=== PATIENT | male | born 1930 | race Caucasian/White ===

== ENCOUNTER 2020-03-19 17:33 | Inpatient (IN) | payer OTHER, MEDICARE ==
[~2020-03-19] VITALS: Ht 175.3 cm; Wt 64.4 kg
[2020-03-19 17:47] VITALS: BP_SYST 140
[2020-03-19] MEDS ORDERED: PANT20TA2 PO (18:27)
[2020-03-19] MEDS ORDERED: MOM PO (18:27)
[2020-03-19] MEDS ORDERED: INSU100V42 (18:27)
[2020-03-19] MEDS ORDERED: MULT-1089 PO (18:27)
[2020-03-19] MEDS ORDERED: ACET325T53 PO (18:27)
[2020-03-19] MEDS ORDERED: ACET-73 PO (18:27)
[2020-03-19] MEDS ORDERED: DIVA250T PO (18:27)
[2020-03-19] MEDS ORDERED: ZOLP5TAB2 PO (18:27)
[2020-03-19] MEDS ORDERED: TIMO5DRO16 EACH EYE (18:27)
[2020-03-19] MEDS ORDERED: SITA100T11 PO (18:27)
[2020-03-19] MEDS ORDERED: LOSA50TA3 PO (18:27)
[2020-03-19] MEDS ORDERED: ONDANSETRON HCL 4 MG/2 ML VIAL IVP ONE (19:00)
[2020-03-19] MEDS ORDERED: MORPHINE 2 MG/ML INJ. SYRINGE IVP ONE (19:00)
[2020-03-19 19:34] LABS: BASOPHILS # (AUTO) 0.1 K/uL (0.0-0.2); BASOPHILS % (AUTO) 1.3 % (0.0-2.0); EOSINOPHILS # (AUTO) 0.2 K/uL (0.0-0.4); EOSINOPHILS % (AUTO) 2.1 % (0.0-4.0); HEMATOCRIT 42.2 % (36-54); HEMOGLOBIN 14.3 g/dL (14.0-18.0); LYMPHOCYTES # (AUTO) 1.4 K/uL (1.0-5.5); LYMPHOCYTES % (AUTO) 12.7 % (20.5-51.5); MEAN CORPUSCULAR HEMOGLOBIN 31 pg (27-31); MEAN CORPUSCULAR HGB CONC 34 % (32-36); MEAN CORPUSCULAR VOLUME 90 fL (79.0-98.0); MONOCYTES # (AUTO) 1.5 K/uL (0.0-1.0); MONOCYTES % (AUTO) 13.6 % (1.7-9.3); NEUTROPHILS # (AUTO) 7.8 K/uL (1.8-7.7); NEUTROPHILS % (AUTO) 70.3 % (40.0-70.0); PLATELET COUNT (AUTO) 235 K/uL (130-430); RED BLOOD CELL COUNT(AUTO) 4.67 MIL/uL (4.2-6.2); RED CELL DISTRIBUTION WIDTH 14.4 % (9.0-15.0); WHITE BLOOD COUNT (AUTO) 11.1 K/uL (4.8-10.8)
[2020-03-19] MEDS ORDERED: IOHEXOL 350 mgI/mL, 150 ML INFUS..BTL IV ONE (20:49)
[2020-03-20] MEDS ORDERED: HEPARIN 25,000 UNITS/D5W 250ML 250 ML IV ONE (05:33)
[2020-03-20] MEDS ORDERED: HEPARIN SODIUM,PORCINE 5,000 UNITS/ML VIAL ONE (05:52)
[2020-03-20 08:00] VITALS: BP_SYST 169
[2020-03-20] MEDS ORDERED: *HEPARIN PER PHARMACY XX PRN (08:15)
[2020-03-20] MEDS ORDERED: HEPARIN SODIUM,PORCINE 5,000 UNITS/ML VIAL IV ONE (08:45)
[2020-03-20] MEDS ORDERED: KCL 20 mEq in D5/0.45NS 1000mL 1,000 ML IV SCH (08:45)
[2020-03-20 12:00] VITALS: BP_SYST 139
[2020-03-20 13:43] LABS: POTASSIUM 4.5 mmol/L (3.5-5.1); SODIUM SERUM 136 mmol/L (136-145)
[2020-03-20 13:44] LABS: ALANINE AMINOTRANSFERASE 683 U/L (12-78); ANION GAP 9 (5-15); ASPARTATE AMINOTRANSFERASE 131 U/L (10-37); CALCIUM 8.6 mg/dL (8.4-11.0); CHLORIDE 106 mmol/L (98-107); CREATININE 1.08 mg/dL (0.55-1.30); GLUCOSE 192 mg/dL (70-99); TOTAL BILIRUBIN 0.8 mg/dL (0.0-1.0); UREA NITROGEN, BLOOD 34 mg/dL (8-21)
[2020-03-20 13:45] LABS: ALBUMIN 2.6 g/dL (3.4-4.8)
[2020-03-20] MEDS ORDERED: MULTIVITAMINS TAB 1 TABLET PO ONE (14:15)
[2020-03-20] MEDS ORDERED: ACETAMINOPHEN 325 MG TABLET PO SCH (14:15)
[2020-03-20] MEDS ORDERED: LOSARTAN POTASSIUM 50 MG TABLET (COZAAR) PO ONE (14:15)
[2020-03-20] MEDS ORDERED: TIMOLOL MALEATE 0.25% OPHTHALMIC DROPS 5 ML EACH EYE ONE (15:00)
[2020-03-20] MEDS ORDERED: DIVALPROEX SODIUM 250 MG TAB.SR.24H (DEPAKOTE ER) PO ONE (15:00)
[2020-03-20 15:50] VITALS: BP_SYST 151
[2020-03-20] MEDS: INSULIN REGULAR, HUMAN 100 UNITS/ML, 10 ML VIAL (humuLIN R) SUBCUT PRN ×2 (17:21→22:13)
[2020-03-20] MEDS: 0.45% NACL 1,000 ML IV SCH (19:57)
[2020-03-20 20:00] VITALS: BP_SYST 153
[2020-03-20] MEDS: ZOLPIDEM TARTRATE 5 MG TABLET PO PRN (22:15)
[2020-03-20] MEDS: HEPARIN 25,000 UNITS in 250 ML PREMIX IV PRN (22:50)
[2020-03-21] VITALS: BP_SYST 144
[2020-03-21] MEDS: INSULIN REGULAR, HUMAN 100 UNITS/ML, 10 ML VIAL (humuLIN R) SUBCUT PRN ×3 (06:43→21:36)
[2020-03-21 08:15] VITALS: BP_SYST 141
[2020-03-21] MEDS: 0.45% NACL 1,000 ML IV SCH ×2 (08:19→21:22)
[2020-03-21] MEDS: MULTIVITAMINS TAB 1 TABLET PO SCH (09:00)
[2020-03-21] MEDS ORDERED: MILK OF MAGNESIA 30 ML UDC PO PRN (09:00)
[2020-03-21] MEDS: LOSARTAN POTASSIUM 50 MG TABLET (COZAAR) PO SCH (09:00)
[2020-03-21] MEDS: DIVALPROEX SODIUM 250 MG TAB.SR.24H (DEPAKOTE ER) PO SCH (09:00)
[2020-03-21] MEDS: TIMOLOL MALEATE 0.25% OPHTHALMIC DROPS 5 ML EACH EYE SCH (09:00)
[2020-03-21] MEDS: ACETAMINOPHEN 500 MG TABLET PO PRN (12:12)
[2020-03-21 16:30] VITALS: BP_SYST 163
[2020-03-21 19:00] VITALS: BP_SYST 124
[2020-03-21 20:00] VITALS: BP_SYST 128
[2020-03-21] MEDS: HEPARIN 25,000 UNITS in 250 ML PREMIX IV PRN (21:27)
[2020-03-21] MEDS: ZOLPIDEM TARTRATE 5 MG TABLET PO PRN (21:28)
[2020-03-22] VITALS: BP_SYST 157
[2020-03-22] MEDS: INSULIN REGULAR, HUMAN 100 UNITS/ML, 10 ML VIAL (humuLIN R) SUBCUT PRN ×3 (06:28→21:49)
[2020-03-22 08:00] VITALS: BP_SYST 146
[2020-03-22] MEDS: LOSARTAN POTASSIUM 50 MG TABLET (COZAAR) PO SCH (09:10)
[2020-03-22] MEDS: DIVALPROEX SODIUM 250 MG TAB.SR.24H (DEPAKOTE ER) PO SCH (09:10)
[2020-03-22] MEDS: TIMOLOL MALEATE 0.25% OPHTHALMIC DROPS 5 ML EACH EYE SCH (09:11)
[2020-03-22] MEDS: MULTIVITAMINS TAB 1 TABLET PO SCH (09:11)
[2020-03-22 10:36] LABS: PROTHROMBIN TIME 10.1 SECS (9.5-12.5)
[2020-03-22] MEDS: 0.45% NACL 1,000 ML IV SCH (11:39)
[2020-03-22 12:15] VITALS: BP_SYST 133
[2020-03-22 16:13] VITALS: BP_SYST 122
[2020-03-22 19:40] VITALS: BP_SYST 148
[2020-03-23 00:23] VITALS: BP_SYST 126
[2020-03-23] MEDS: 0.45% NACL 1,000 ML IV SCH ×2 (02:05→13:41)
[2020-03-23] MEDS: INSULIN REGULAR, HUMAN 100 UNITS/ML, 10 ML VIAL (humuLIN R) SUBCUT PRN ×4 (06:30→21:02)
[2020-03-23 07:50] LABS: INR 1.1 (0.80-1.20); PROTHROMBIN TIME 10.8 SECS (9.5-12.5)
[2020-03-23] MEDS: TIMOLOL MALEATE 0.25% OPHTHALMIC DROPS 5 ML EACH EYE SCH (10:54)
[2020-03-23] MEDS: LOSARTAN POTASSIUM 50 MG TABLET (COZAAR) PO SCH ×2 (10:56→10:58)
[2020-03-23] MEDS: MULTIVITAMINS TAB 1 TABLET PO SCH (10:57)
[2020-03-23] MEDS: DIVALPROEX SODIUM 250 MG TAB.SR.24H (DEPAKOTE ER) PO SCH (10:59)
[2020-03-23 12:47] VITALS: BP_SYST 149
[2020-03-23] MEDS: HEPARIN SODIUM,PORCINE 3000 UNITS/0.6 ML BOLUS IVP PRN (14:05)
[2020-03-23] MEDS: HEPARIN 25,000 UNITS in 250 ML PREMIX IV PRN ×2 (14:10→23:15)
[2020-03-23 17:14] VITALS: BP_SYST 119
[2020-03-23 20:00] VITALS: BP_SYST 120
[2020-03-24] VITALS: BP_SYST 117
[2020-03-24] MEDS: 0.45% NACL 1,000 ML IV SCH ×2 (01:53→15:04)
[2020-03-24 07:49] LABS: INR 1.1 (0.80-1.20); PROTHROMBIN TIME 10.7 SECS (9.5-12.5)
[2020-03-24 08:00] VITALS: BP_SYST 149
[2020-03-24] MEDS: MULTIVITAMINS TAB 1 TABLET PO SCH (09:25)
[2020-03-24] MEDS: DIVALPROEX SODIUM 250 MG TAB.SR.24H (DEPAKOTE ER) PO SCH (09:25)
[2020-03-24] MEDS: HEPARIN 25,000 UNITS in 250 ML PREMIX IV PRN (09:25)
[2020-03-24] MEDS: TIMOLOL MALEATE 0.25% OPHTHALMIC DROPS 5 ML EACH EYE SCH (09:26)
[2020-03-24 12:00] VITALS: BP_SYST 146
[2020-03-24 16:00] VITALS: BP_SYST 145
[2020-03-24] MEDS: INSULIN REGULAR, HUMAN 100 UNITS/ML, 10 ML VIAL (humuLIN R) SUBCUT PRN ×2 (18:38→21:54)
[2020-03-24 20:00] VITALS: BP_SYST 143
[2020-03-24] MEDS: QUEtiapine FUMARATE 25 MG TABLET PO SCH (21:34)
[2020-03-25 00:13] VITALS: BP_SYST 139
[2020-03-25] MEDS: INSULIN REGULAR, HUMAN 100 UNITS/ML, 10 ML VIAL (humuLIN R) SUBCUT PRN ×4 (06:18→21:38)
[2020-03-25] MEDS: 0.45% NACL 1,000 ML IV SCH ×2 (06:23→21:30)
[2020-03-25 07:03] LABS: BASOPHILS # (AUTO) 0.1 K/uL (0.0-0.2); BASOPHILS % (AUTO) 0.3 % (0.0-2.0); HEMATOCRIT 34.6 % (36-54); HEMOGLOBIN 11.4 g/dL (14.0-18.0); LYMPHOCYTES # (AUTO) 1.2 K/uL (1.0-5.5); LYMPHOCYTES % (AUTO) 5.8 % (20.5-51.5); MEAN CORPUSCULAR HEMOGLOBIN 30 pg (27-31); MEAN CORPUSCULAR HGB CONC 33 % (32-36); MEAN CORPUSCULAR VOLUME 90 fL (79.0-98.0); MONOCYTES # (AUTO) 2.1 K/uL (0.0-1.0); MONOCYTES % (AUTO) 9.9 % (1.7-9.3); PLATELET COUNT (AUTO) 238 K/uL (130-430); RED BLOOD CELL COUNT(AUTO) 3.84 MIL/uL (4.2-6.2); RED CELL DISTRIBUTION WIDTH 13.9 % (9.0-15.0); WHITE BLOOD COUNT (AUTO) 21.5 K/uL (4.8-10.8)
[2020-03-25 07:25] LABS: ANION GAP 6 (5-15); CALCIUM 7.7 mg/dL (8.4-11.0); CHLORIDE 103 mmol/L (98-107); CREATININE 0.97 mg/dL (0.55-1.30); GLUCOSE 222 mg/dL (70-99); POTASSIUM 3.9 mmol/L (3.5-5.1); SODIUM SERUM 136 mmol/L (136-145); UREA NITROGEN, BLOOD 21 mg/dL (8-21)
[2020-03-25 08:00] VITALS: BP_SYST 159
[2020-03-25] MEDS: QUEtiapine FUMARATE 25 MG TABLET PO SCH ×2 (09:31→21:30)
[2020-03-25] MEDS: LOSARTAN POTASSIUM 50 MG TABLET (COZAAR) PO SCH (09:31)
[2020-03-25] MEDS: MULTIVITAMINS TAB 1 TABLET PO SCH (09:31)
[2020-03-25] MEDS: DIVALPROEX SODIUM 250 MG TAB.SR.24H (DEPAKOTE ER) PO SCH (09:36)
[2020-03-25] MEDS: TIMOLOL MALEATE 0.25% OPHTHALMIC DROPS 5 ML EACH EYE SCH (09:40)
[2020-03-25] MEDS: HEPARIN 25,000 UNITS in 250 ML PREMIX IV PRN (11:14)
[2020-03-25 12:51] VITALS: BP_SYST 152
[2020-03-25 16:00] VITALS: BP_SYST 131
[2020-03-25] MEDS: ACETAMINOPHEN 500 MG TABLET PO PRN (17:57)
[2020-03-25 20:00] VITALS: BP_SYST 148
[2020-03-25] MEDS ORDERED: VANCOMYCIN HCL 1 GM/NS PREMIX 250 ML IV ONE (22:00)
[2020-03-25] MEDS ORDERED: VANCOMYCIN HCL 1000 MG/VIAL IV ONE (23:47)
[2020-03-26] MEDS: ZOLPIDEM TARTRATE 5 MG TABLET PO PRN (00:04)
[2020-03-26] MEDS: ACETAMINOPHEN 500 MG TABLET PO PRN ×2 (00:11→22:21)
[2020-03-26 00:46] VITALS: BP_SYST 141
[2020-03-26] MEDS: HEPARIN 25,000 UNITS in 250 ML PREMIX IV PRN (06:41)
[2020-03-26] MEDS: INSULIN REGULAR, HUMAN 100 UNITS/ML, 10 ML VIAL (humuLIN R) SUBCUT PRN ×2 (06:49→18:08)
[2020-03-26 07:04] LABS: BASOPHILS # (AUTO) 0.1 K/uL (0.0-0.2); BASOPHILS % (AUTO) 0.3 % (0.0-2.0); EOSINOPHILS % (AUTO) 0.2 % (0.0-4.0); HEMATOCRIT 33.2 % (36-54); LYMPHOCYTES # (AUTO) 1.4 K/uL (1.0-5.5); LYMPHOCYTES % (AUTO) 6.1 % (20.5-51.5); MEAN CORPUSCULAR HEMOGLOBIN 30 pg (27-31); MEAN CORPUSCULAR HGB CONC 33 % (32-36); MEAN CORPUSCULAR VOLUME 91 fL (79.0-98.0); MONOCYTES # (AUTO) 2.6 K/uL (0.0-1.0); MONOCYTES % (AUTO) 11.3 % (1.7-9.3); NEUTROPHILS # (AUTO) 18.7 K/uL (1.8-7.7); NEUTROPHILS % (AUTO) 82.1 % (40.0-70.0); PLATELET COUNT (AUTO) 260 K/uL (130-430); RED BLOOD CELL COUNT(AUTO) 3.66 MIL/uL (4.2-6.2); WHITE BLOOD COUNT (AUTO) 22.7 K/uL (4.8-10.8)
[2020-03-26 07:13] LABS: ANION GAP 5 (5-15); CHLORIDE 101 mmol/L (98-107); CREATININE 1.03 mg/dL (0.55-1.30); GLUCOSE 207 mg/dL (70-99); POTASSIUM 3.6 mmol/L (3.5-5.1); SODIUM SERUM 133 mmol/L (136-145); UREA NITROGEN, BLOOD 17 mg/dL (8-21); VALPROIC ACID 13 ug/mL (50-100)
[2020-03-26 08:00] VITALS: BP_SYST 147
[2020-03-26] MEDS: TIMOLOL MALEATE 0.25% OPHTHALMIC DROPS 5 ML EACH EYE SCH (08:46)
[2020-03-26] MEDS: MULTIVITAMINS TAB 1 TABLET PO SCH (08:46)
[2020-03-26] MEDS: DIVALPROEX SODIUM 250 MG TAB.SR.24H (DEPAKOTE ER) PO SCH (08:46)
[2020-03-26] MEDS: LOSARTAN POTASSIUM 50 MG TABLET (COZAAR) PO SCH (08:47)
[2020-03-26] MEDS: QUEtiapine FUMARATE 25 MG TABLET PO SCH ×2 (08:47→22:02)
[2020-03-26] MEDS: 0.45% NACL 1,000 ML IV SCH ×2 (12:46→22:25)
[2020-03-26] MEDS: LEVOFLOXACIN 500 MG/D5W 100 ML IV SCH (12:46)
[2020-03-26 12:51] VITALS: BP_SYST 133
[2020-03-26] MEDS ORDERED: metroNIDAZOLE 500 mg/NS 100 ML IV SCH (14:00)
[2020-03-26 16:51] VITALS: BP_SYST 135
[2020-03-26 20:00] VITALS: BP_SYST 149
[2020-03-26] MEDS: MEGESTROL ACETATE 400 MG/10 ML UDC PO SCH (22:02)
[2020-03-26] MEDS: CLINDAMYCIN 600 MG in D5W 50 ML IV SCH (22:02)
[2020-03-26] MEDS ORDERED: VANCOMYCIN HCL 1,000 MG in NS 250 ML IV SCH (23:00)
[2020-03-27] MEDS: ZOLPIDEM TARTRATE 5 MG TABLET PO PRN (01:00)
[2020-03-27 01:56] VITALS: BP_SYST 140
[2020-03-27] MEDS: 0.45% NACL 1,000 ML IV SCH ×2 (02:38→20:14)
[2020-03-27] MEDS: HEPARIN 25,000 UNITS in 250 ML PREMIX IV PRN ×2 (05:28→23:38)
[2020-03-27] MEDS: INSULIN REGULAR, HUMAN 100 UNITS/ML, 10 ML VIAL (humuLIN R) SUBCUT PRN ×4 (06:05→20:28)
[2020-03-27 08:04] VITALS: BP_SYST 140
[2020-03-27] MEDS: QUEtiapine FUMARATE 25 MG TABLET PO SCH ×2 (08:10→20:14)
[2020-03-27] MEDS: MULTIVITAMINS TAB 1 TABLET PO SCH (08:10)
[2020-03-27] MEDS: LOSARTAN POTASSIUM 50 MG TABLET (COZAAR) PO SCH (08:11)
[2020-03-27] MEDS: MEGESTROL ACETATE 400 MG/10 ML UDC PO SCH ×2 (08:11→20:14)
[2020-03-27] MEDS: TIMOLOL MALEATE 0.25% OPHTHALMIC DROPS 5 ML EACH EYE SCH (08:12)
[2020-03-27] MEDS: CLINDAMYCIN 600 MG in D5W 50 ML IV SCH ×2 (08:13→20:13)
[2020-03-27] MEDS: DIVALPROEX SODIUM 250 MG TAB.SR.24H (DEPAKOTE ER) PO SCH (08:13)
[2020-03-27] MEDS: LEVOFLOXACIN 500 MG/D5W 100 ML IV SCH (11:15)
[2020-03-27 12:16] VITALS: BP_SYST 123
[2020-03-27 16:14] VITALS: BP_SYST 108
[2020-03-27] MEDS ORDERED: traMADol HCL HCL 50 MG TABLET (ULTRAM) PO ONE (19:45)
[2020-03-27 20:00] VITALS: BP_SYST 148
[2020-03-28] VITALS: BP_SYST 148
[2020-03-28] MEDS: traMADol HCL HCL 50 MG TABLET (ULTRAM) PO SCH ×4 (01:00→19:00)
[2020-03-28] MEDS: INSULIN REGULAR, HUMAN 100 UNITS/ML, 10 ML VIAL (humuLIN R) SUBCUT PRN ×3 (07:02→21:20)
[2020-03-28 07:18] LABS: BASOPHILS # (AUTO) 0.1 K/uL (0.0-0.2); BASOPHILS % (AUTO) 0.4 % (0.0-2.0); HEMATOCRIT 36.3 % (36-54); HEMOGLOBIN 12.1 g/dL (14.0-18.0); LYMPHOCYTES # (AUTO) 1.2 K/uL (1.0-5.5); LYMPHOCYTES % (AUTO) 4.4 % (20.5-51.5); MEAN CORPUSCULAR HEMOGLOBIN 30 pg (27-31); MEAN CORPUSCULAR HGB CONC 33 % (32-36); MEAN CORPUSCULAR VOLUME 89 fL (79.0-98.0); MONOCYTES # (AUTO) 2.5 K/uL (0.0-1.0); MONOCYTES % (AUTO) 9.1 % (1.7-9.3); NEUTROPHILS # (AUTO) 23.5 K/uL (1.8-7.7); NEUTROPHILS % (AUTO) 86.1 % (40.0-70.0); PLATELET COUNT (AUTO) 402 K/uL (130-430); RED BLOOD CELL COUNT(AUTO) 4.06 MIL/uL (4.2-6.2); RED CELL DISTRIBUTION WIDTH 13.7 % (9.0-15.0); WHITE BLOOD COUNT (AUTO) 27.3 K/uL (4.8-10.8)
[2020-03-28 08:00] VITALS: BP_SYST 140
[2020-03-28] MEDS: LOSARTAN POTASSIUM 50 MG TABLET (COZAAR) PO SCH (09:45)
[2020-03-28] MEDS: TIMOLOL MALEATE 0.25% OPHTHALMIC DROPS 5 ML EACH EYE SCH (09:45)
[2020-03-28] MEDS: DIVALPROEX SODIUM 250 MG TAB.SR.24H (DEPAKOTE ER) PO SCH (09:45)
[2020-03-28] MEDS: MEGESTROL ACETATE 400 MG/10 ML UDC PO SCH ×2 (09:46→21:17)
[2020-03-28] MEDS: QUEtiapine FUMARATE 25 MG TABLET PO SCH ×2 (09:46→21:17)
[2020-03-28] MEDS: MULTIVITAMINS TAB 1 TABLET PO SCH (09:46)
[2020-03-28 12:00] VITALS: BP_SYST 130
[2020-03-28] MEDS: CHOLECALCIFEROL (VITAMIN D3) 2,000 UNIT TABLET PO SCH (12:50)
[2020-03-28] MEDS: ASCORBIC ACID 500 MG TABLET PO SCH (12:50)
[2020-03-28] MEDS: 0.45% NACL 1,000 ML IV SCH (12:52)
[2020-03-28] MEDS: PIPERACILLIN/TAZO 4.5GM/DEX-IS 100 ML IV SCH ×2 (12:52→21:19)
[2020-03-28 16:00] VITALS: BP_SYST 150
[2020-03-28] MEDS: HEPARIN 25,000 UNITS in 250 ML PREMIX IV PRN (18:32)
[2020-03-28 20:00] VITALS: BP_SYST 121
[2020-03-29] VITALS: BP_SYST 140
[2020-03-29] MEDS: traMADol HCL HCL 50 MG TABLET (ULTRAM) PO SCH ×3 (00:27→17:06)
[2020-03-29] MEDS: 0.45% NACL 1,000 ML IV SCH ×2 (00:27→21:15)
[2020-03-29] MEDS: PIPERACILLIN/TAZO 4.5GM/DEX-IS 100 ML IV SCH ×3 (07:07→21:16)
[2020-03-29 08:00] VITALS: BP_SYST 154
[2020-03-29] MEDS: TIMOLOL MALEATE 0.25% OPHTHALMIC DROPS 5 ML EACH EYE SCH (09:00)
[2020-03-29] MEDS: LOSARTAN POTASSIUM 50 MG TABLET (COZAAR) PO SCH (09:45)
[2020-03-29] MEDS: MULTIVITAMINS TAB 1 TABLET PO SCH (09:45)
[2020-03-29] MEDS: CHOLECALCIFEROL (VITAMIN D3) 2,000 UNIT TABLET PO SCH (09:45)
[2020-03-29] MEDS: ASCORBIC ACID 500 MG TABLET PO SCH (09:45)
[2020-03-29] MEDS: MEGESTROL ACETATE 400 MG/10 ML UDC PO SCH ×2 (09:45→21:15)
[2020-03-29] MEDS: QUEtiapine FUMARATE 25 MG TABLET PO SCH ×2 (09:45→21:16)
[2020-03-29] MEDS: DIVALPROEX SODIUM 250 MG TAB.SR.24H (DEPAKOTE ER) PO SCH (09:45)
[2020-03-29 11:19] LABS: BASOPHILS % (AUTO) 0.3 % (0.0-2.0); EOSINOPHILS # (AUTO) 0.1 K/uL (0.0-0.4); EOSINOPHILS % (AUTO) 0.3 % (0.0-4.0); HEMATOCRIT 32.8 % (36-54); HEMOGLOBIN 10.5 g/dL (14.0-18.0); LYMPHOCYTES # (AUTO) 1.4 K/uL (1.0-5.5); LYMPHOCYTES % (AUTO) 8.3 % (20.5-51.5); MEAN CORPUSCULAR HEMOGLOBIN 29 pg (27-31); MEAN CORPUSCULAR HGB CONC 32 % (32-36); MEAN CORPUSCULAR VOLUME 91 fL (79.0-98.0); MONOCYTES # (AUTO) 2.1 K/uL (0.0-1.0); MONOCYTES % (AUTO) 12.4 % (1.7-9.3); NEUTROPHILS # (AUTO) 13.1 K/uL (1.8-7.7); NEUTROPHILS % (AUTO) 78.7 % (40.0-70.0); PLATELET COUNT (AUTO) 349 K/uL (130-430); RED BLOOD CELL COUNT(AUTO) 3.58 MIL/uL (4.2-6.2); RED CELL DISTRIBUTION WIDTH 13.9 % (9.0-15.0); WHITE BLOOD COUNT (AUTO) 16.6 K/uL (4.8-10.8)
[2020-03-29 11:37] LABS: ANION GAP 5 (5-15); CALCIUM 7.5 mg/dL (8.4-11.0); CHLORIDE 103 mmol/L (98-107); CREATININE 1.07 mg/dL (0.55-1.30); GLUCOSE 161 mg/dL (70-99); POTASSIUM 3.7 mmol/L (3.5-5.1); SODIUM SERUM 135 mmol/L (136-145); UREA NITROGEN, BLOOD 14 mg/dL (8-21)
[2020-03-29 11:49] LABS: C-REACTIVE PROTEIN QUANT 14.9 mg/dL (0-0.5)
[2020-03-29 16:00] VITALS: BP_SYST 141
[2020-03-29] MEDS: HEPARIN 25,000 UNITS in 250 ML PREMIX IV PRN (18:20)
[2020-03-29] MEDS: INSULIN REGULAR, HUMAN 100 UNITS/ML, 10 ML VIAL (humuLIN R) SUBCUT PRN ×2 (18:21→21:21)
[2020-03-29] MEDS ORDERED: *PPN PER PHARMACY XX PRN ×2 (19:30→20:00)
[2020-03-29 20:45] VITALS: BP_SYST 143
[2020-03-29] MEDS: MIRTAZAPINE 15 MG TABLET PO SCH (21:16)
[2020-03-30] VITALS: BP_SYST 153
[2020-03-30] MEDS: traMADol HCL HCL 50 MG TABLET (ULTRAM) PO SCH ×4 (01:16→19:00)
[2020-03-30] MEDS: PIPERACILLIN/TAZO 4.5GM/DEX-IS 100 ML IV SCH ×3 (05:46→21:19)
[2020-03-30] MEDS: 0.45% NACL 1,000 ML IV SCH ×3 (06:25→21:00)
[2020-03-30] MEDS: INSULIN REGULAR, HUMAN 100 UNITS/ML, 10 ML VIAL (humuLIN R) SUBCUT PRN (06:28)
[2020-03-30] MEDS: QUEtiapine FUMARATE 25 MG TABLET PO SCH ×2 (09:00→21:00)
[2020-03-30] MEDS: MULTIVITAMINS TAB 1 TABLET PO SCH (09:00)
[2020-03-30] MEDS: ASCORBIC ACID 500 MG TABLET PO SCH (09:00)
[2020-03-30] MEDS: TIMOLOL MALEATE 0.25% OPHTHALMIC DROPS 5 ML EACH EYE SCH (09:00)
[2020-03-30] MEDS: MEGESTROL ACETATE 400 MG/10 ML UDC PO SCH ×2 (09:00→21:00)
[2020-03-30] MEDS: DIVALPROEX SODIUM 250 MG TAB.SR.24H (DEPAKOTE ER) PO SCH (09:00)
[2020-03-30] MEDS: LOSARTAN POTASSIUM 50 MG TABLET (COZAAR) PO SCH (09:00)
[2020-03-30] MEDS: CHOLECALCIFEROL (VITAMIN D3) 2,000 UNIT TABLET PO SCH (09:00)
[2020-03-30] MEDS: HEPARIN 25,000 UNITS in 250 ML PREMIX IV PRN ×2 (09:06→18:15)
[2020-03-30 12:00] VITALS: BP_SYST 127
[2020-03-30 14:39] LABS: ALANINE AMINOTRANSFERASE 73 U/L (12-78); ALBUMIN 1.8 g/dL (3.4-4.8); ANION GAP 8 (5-15); ASPARTATE AMINOTRANSFERASE 63 U/L (10-37); CHLORIDE 103 mmol/L (98-107); CREATININE 1.07 mg/dL (0.55-1.30); GLUCOSE 122 mg/dL (70-99); POTASSIUM 3.4 mmol/L (3.5-5.1); SODIUM SERUM 138 mmol/L (136-145); TOTAL BILIRUBIN 0.4 mg/dL (0.0-1.0); UREA NITROGEN, BLOOD 19 mg/dL (8-21)
[2020-03-30 15:19] LABS: TRIGLYCERIDES 114 mg/dL (30-150)
[2020-03-30] MEDS: HEPARIN SODIUM,PORCINE 3000 UNITS/0.6 ML BOLUS IVP PRN (18:15)
[2020-03-30 20:00] VITALS: BP_SYST 129
[2020-03-30] MEDS ORDERED: SODIUM ACETATE IV SCH ×9 (21:00)
[2020-03-30] MEDS: MIRTAZAPINE 15 MG TABLET PO SCH (21:00)
[2020-03-30] MEDS ORDERED: POTASSIUM CHLORIDE IV SCH ×9 (21:00)
[2020-03-30] MEDS ORDERED: [UNRECOGNIZED DRUG - OTHER] IV SCH ×9 (21:00)
[2020-03-30] MEDS ORDERED: TPN PERIPHERAL IV SCH ×9 (21:00)
[2020-03-31] VITALS: BP_SYST 134
[2020-03-31] MEDS: traMADol HCL HCL 50 MG TABLET (ULTRAM) PO SCH ×3 (01:00→12:30)
[2020-03-31] MEDS: HEPARIN 25,000 UNITS in 250 ML PREMIX IV PRN ×2 (02:11→08:42)
[2020-03-31] MEDS: PIPERACILLIN/TAZO 4.5GM/DEX-IS 100 ML IV SCH ×3 (06:34→22:46)
[2020-03-31] MEDS: INSULIN REGULAR, HUMAN 100 UNITS/ML, 10 ML VIAL (humuLIN R) SUBCUT PRN ×4 (06:36→21:26)
[2020-03-31] MEDS: 0.45% NACL 1,000 ML IV SCH (06:36)
[2020-03-31 08:05] VITALS: BP_SYST 130
[2020-03-31] MEDS: MEGESTROL ACETATE 400 MG/10 ML UDC PO SCH ×2 (08:38→21:00)
[2020-03-31] MEDS: DIVALPROEX SODIUM 250 MG TAB.SR.24H (DEPAKOTE ER) PO SCH (08:38)
[2020-03-31] MEDS: LOSARTAN POTASSIUM 50 MG TABLET (COZAAR) PO SCH (08:38)
[2020-03-31] MEDS: MULTIVITAMINS TAB 1 TABLET PO SCH (08:38)
[2020-03-31] MEDS: TIMOLOL MALEATE 0.25% OPHTHALMIC DROPS 5 ML EACH EYE SCH (08:38)
[2020-03-31] MEDS: QUEtiapine FUMARATE 25 MG TABLET PO SCH ×2 (08:38→21:00)
[2020-03-31] MEDS: ASCORBIC ACID 500 MG TABLET PO SCH (08:39)
[2020-03-31] MEDS: CHOLECALCIFEROL (VITAMIN D3) 2,000 UNIT TABLET PO SCH (08:39)
[2020-03-31 09:56] LABS: ALANINE AMINOTRANSFERASE 68 U/L (12-78); ALBUMIN 1.3 g/dL (3.4-4.8); ANION GAP 6 (5-15); ASPARTATE AMINOTRANSFERASE 52 U/L (10-37); CALCIUM 7.7 mg/dL (8.4-11.0); CHLORIDE 104 mmol/L (98-107); CREATININE 1.08 mg/dL (0.55-1.30); GLUCOSE 266 mg/dL (70-99); PHOSPHORUS 2.6 mg/dL (2.7-4.5); POTASSIUM 3.4 mmol/L (3.5-5.1); SODIUM SERUM 136 mmol/L (136-145); TOTAL BILIRUBIN 0.4 mg/dL (0.0-1.0); UREA NITROGEN, BLOOD 12 mg/dL (8-21)
[2020-03-31 12:06] VITALS: BP_SYST 131
[2020-03-31 16:58] VITALS: BP_SYST 139
[2020-03-31 20:00] VITALS: BP_SYST 133
[2020-03-31] MEDS ORDERED: SODIUM ACETATE IV SCH ×11 (21:00)
[2020-03-31] MEDS: MIRTAZAPINE 15 MG TABLET PO SCH (21:00)
[2020-03-31] MEDS ORDERED: POTASSIUM CHLORIDE IV SCH ×11 (21:00)
[2020-03-31] MEDS ORDERED: TPN PERIPHERAL IV SCH ×11 (21:00)
[2020-03-31] MEDS ORDERED: [UNRECOGNIZED DRUG - OTHER] IV SCH ×11 (21:00)
[2020-04-01] MEDS: PIPERACILLIN/TAZO 4.5GM/DEX-IS 100 ML IV SCH ×3 (00:35→13:28)
[2020-04-01] MEDS: traMADol HCL HCL 50 MG TABLET (ULTRAM) PO SCH ×4 (01:00→21:56)
[2020-04-01 04:00] VITALS: BP_SYST 137
[2020-04-01] MEDS: INSULIN REGULAR, HUMAN 100 UNITS/ML, 10 ML VIAL (humuLIN R) SUBCUT PRN ×4 (06:55→21:56)
[2020-04-01 07:23] LABS: BASOPHILS # (AUTO) 0.1 K/uL (0.0-0.2); BASOPHILS % (AUTO) 0.4 % (0.0-2.0); EOSINOPHILS % (AUTO) 0.1 % (0.0-4.0); HEMATOCRIT 36.4 % (36-54); HEMOGLOBIN 12.2 g/dL (14.0-18.0); LYMPHOCYTES % (AUTO) 4.7 % (20.5-51.5); MEAN CORPUSCULAR HEMOGLOBIN 30 pg (27-31); MEAN CORPUSCULAR HGB CONC 33 % (32-36); MEAN CORPUSCULAR VOLUME 89 fL (79.0-98.0); MONOCYTES # (AUTO) 2.7 K/uL (0.0-1.0); MONOCYTES % (AUTO) 13.2 % (1.7-9.3); NEUTROPHILS # (AUTO) 16.7 K/uL (1.8-7.7); NEUTROPHILS % (AUTO) 81.6 % (40.0-70.0); PLATELET COUNT (AUTO) 431 K/uL (130-430); RED BLOOD CELL COUNT(AUTO) 4.09 MIL/uL (4.2-6.2); RED CELL DISTRIBUTION WIDTH 13.8 % (9.0-15.0); WHITE BLOOD COUNT (AUTO) 20.4 K/uL (4.8-10.8)
[2020-04-01 07:35] LABS: ALANINE AMINOTRANSFERASE 70 U/L (12-78); ALBUMIN 1.7 g/dL (3.4-4.8); ANION GAP 10 (5-15); ASPARTATE AMINOTRANSFERASE 51 U/L (10-37); CALCIUM 7.9 mg/dL (8.4-11.0); CHLORIDE 103 mmol/L (98-107); CREATININE 0.98 mg/dL (0.55-1.30); GLUCOSE 246 mg/dL (70-99); PHOSPHORUS 2.7 mg/dL (2.7-4.5); POTASSIUM 3.3 mmol/L (3.5-5.1); SODIUM SERUM 139 mmol/L (136-145); TOTAL BILIRUBIN 0.5 mg/dL (0.0-1.0); UREA NITROGEN, BLOOD 15 mg/dL (8-21)
[2020-04-01] MEDS: HEPARIN SODIUM,PORCINE 2000 UNITS/0.4 ML BOLUS IVP PRN (08:33)
[2020-04-01] MEDS: HEPARIN 25,000 UNITS in 250 ML PREMIX IV PRN (08:34)
[2020-04-01] MEDS: TIMOLOL MALEATE 0.25% OPHTHALMIC DROPS 5 ML EACH EYE SCH (08:35)
[2020-04-01 08:36] VITALS: BP_SYST 149
[2020-04-01] MEDS: LOSARTAN POTASSIUM 50 MG TABLET (COZAAR) PO SCH (08:45)
[2020-04-01] MEDS: MEGESTROL ACETATE 400 MG/10 ML UDC PO SCH ×2 (08:46→21:56)
[2020-04-01] MEDS: DIVALPROEX SODIUM 250 MG TAB.SR.24H (DEPAKOTE ER) PO SCH (08:46)
[2020-04-01] MEDS: QUEtiapine FUMARATE 25 MG TABLET PO SCH ×2 (08:46→21:56)
[2020-04-01] MEDS: CHOLECALCIFEROL (VITAMIN D3) 2,000 UNIT TABLET PO SCH (08:46)
[2020-04-01] MEDS: ASCORBIC ACID 500 MG TABLET PO SCH (08:46)
[2020-04-01] MEDS: MULTIVITAMINS TAB 1 TABLET PO SCH (08:46)
[2020-04-01 12:24] VITALS: BP_SYST 147
[2020-04-01 16:40] VITALS: BP_SYST 126
[2020-04-01] MEDS: 0.45% NACL 1,000 ML IV SCH (17:02)
[2020-04-01 20:00] VITALS: BP_SYST 147
[2020-04-01] MEDS ORDERED: SODIUM ACETATE IV SCH ×11 (21:00)
[2020-04-01] MEDS ORDERED: TPN PERIPHERAL IV SCH ×11 (21:00)
[2020-04-01] MEDS ORDERED: [UNRECOGNIZED DRUG - OTHER] IV SCH ×11 (21:00)
[2020-04-01] MEDS ORDERED: POTASSIUM ACETATE IV SCH ×11 (21:00)
[2020-04-01] MEDS: MIRTAZAPINE 15 MG TABLET PO SCH (21:56)
[2020-04-01] MEDS ORDERED: LORazepam 2 MG/ML VIAL IVP ONE (23:45)
[2020-04-02] VITALS: BP_SYST 153
[2020-04-02] MEDS: PIPERACILLIN/TAZO 4.5GM/DEX-IS 100 ML IV SCH ×4 (00:30→22:00)
[2020-04-02] MEDS: traMADol HCL HCL 50 MG TABLET (ULTRAM) PO SCH ×4 (01:00→19:00)
[2020-04-02] MEDS: HEPARIN 25,000 UNITS in 250 ML PREMIX IV PRN ×3 (06:30→19:30)
[2020-04-02] MEDS: INSULIN REGULAR, HUMAN 100 UNITS/ML, 10 ML VIAL (humuLIN R) SUBCUT PRN ×2 (06:53→22:00)
[2020-04-02 07:22] LABS: BASOPHILS # (AUTO) 0.2 K/uL (0.0-0.2); EOSINOPHILS # (AUTO) 0.1 K/uL (0.0-0.4); EOSINOPHILS % (AUTO) 0.4 % (0.0-4.0); HEMATOCRIT 32.5 % (36-54); HEMOGLOBIN 10.9 g/dL (14.0-18.0); LYMPHOCYTES # (AUTO) 1.4 K/uL (1.0-5.5); LYMPHOCYTES % (AUTO) 8.5 % (20.5-51.5); MEAN CORPUSCULAR HEMOGLOBIN 30 pg (27-31); MEAN CORPUSCULAR HGB CONC 33 % (32-36); MEAN CORPUSCULAR VOLUME 89 fL (79.0-98.0); MONOCYTES # (AUTO) 2.3 K/uL (0.0-1.0); MONOCYTES % (AUTO) 13.9 % (1.7-9.3); NEUTROPHILS # (AUTO) 12.6 K/uL (1.8-7.7); PLATELET COUNT (AUTO) 354 K/uL (130-430); RED BLOOD CELL COUNT(AUTO) 3.65 MIL/uL (4.2-6.2); RED CELL DISTRIBUTION WIDTH 13.8 % (9.0-15.0); WHITE BLOOD COUNT (AUTO) 16.6 K/uL (4.8-10.8)
[2020-04-02 07:33] LABS: ALANINE AMINOTRANSFERASE 61 U/L (12-78); ALBUMIN 1.4 g/dL (3.4-4.8); ANION GAP 7 (5-15); ASPARTATE AMINOTRANSFERASE 52 U/L (10-37); CALCIUM 7.7 mg/dL (8.4-11.0); CHLORIDE 104 mmol/L (98-107); GLUCOSE 163 mg/dL (70-99); PHOSPHORUS 2.1 mg/dL (2.7-4.5); SODIUM SERUM 138 mmol/L (136-145); TOTAL BILIRUBIN 0.6 mg/dL (0.0-1.0); UREA NITROGEN, BLOOD 15 mg/dL (8-21)
[2020-04-02 08:00] VITALS: BP_SYST 145
[2020-04-02] MEDS: TIMOLOL MALEATE 0.25% OPHTHALMIC DROPS 5 ML EACH EYE SCH (08:37)
[2020-04-02] MEDS: LOSARTAN POTASSIUM 50 MG TABLET (COZAAR) PO SCH (08:38)
[2020-04-02] MEDS: DIVALPROEX SODIUM 250 MG TAB.SR.24H (DEPAKOTE ER) PO SCH (08:38)
[2020-04-02] MEDS: MEGESTROL ACETATE 400 MG/10 ML UDC PO SCH ×2 (08:39→22:00)
[2020-04-02] MEDS: MULTIVITAMINS TAB 1 TABLET PO SCH (08:52)
[2020-04-02] MEDS: QUEtiapine FUMARATE 25 MG TABLET PO SCH ×2 (08:53→22:00)
[2020-04-02] MEDS: ASCORBIC ACID 500 MG TABLET PO SCH (08:53)
[2020-04-02] MEDS: CHOLECALCIFEROL (VITAMIN D3) 2,000 UNIT TABLET PO SCH (08:53)
[2020-04-02] MEDS: HEPARIN SODIUM,PORCINE 2000 UNITS/0.4 ML BOLUS IVP PRN (09:40)
[2020-04-02 10:52] LABS: NEUTROPHILS % (AUTO) 76.2 % (40.0-70.0)
[2020-04-02 11:44] VITALS: BP_SYST 148
[2020-04-02] MEDS: POTASSIUM CHLORIDE 40 MEQ in NS 250 ML IV SCH ×3 (13:00→22:00)
[2020-04-02 16:23] VITALS: BP_SYST 151
[2020-04-02] MEDS ORDERED: LORazepam 2 MG/ML VIAL IM PRN (19:00)
[2020-04-02 20:00] VITALS: BP_SYST 134
[2020-04-02] MEDS: LORazepam 2 MG/ML VIAL IVP PRN (20:04)
[2020-04-02] MEDS ORDERED: [UNRECOGNIZED DRUG - OTHER] IV SCH ×12 (21:00)
[2020-04-02] MEDS ORDERED: POTASSIUM ACETATE IV SCH ×12 (21:00)
[2020-04-02] MEDS ORDERED: SODIUM ACETATE IV SCH ×12 (21:00)
[2020-04-02] MEDS ORDERED: TPN PERIPHERAL IV SCH ×12 (21:00)
[2020-04-02] MEDS: 0.45% NACL 1,000 ML IV SCH (22:00)
[2020-04-02] MEDS: MIRTAZAPINE 15 MG TABLET PO SCH (22:00)
[2020-04-03 00:14] VITALS: BP_SYST 128
[2020-04-03] MEDS: traMADol HCL HCL 50 MG TABLET (ULTRAM) PO SCH ×4 (01:34→19:33)
[2020-04-03] MEDS: HEPARIN 25,000 UNITS in 250 ML PREMIX IV PRN ×4 (02:30→21:13)
[2020-04-03] MEDS: PIPERACILLIN/TAZO 4.5GM/DEX-IS 100 ML IV SCH ×3 (06:21→21:20)
[2020-04-03] MEDS: INSULIN REGULAR, HUMAN 100 UNITS/ML, 10 ML VIAL (humuLIN R) SUBCUT PRN ×4 (06:43→21:14)
[2020-04-03 07:45] LABS: ALANINE AMINOTRANSFERASE 61 U/L (12-78); ALBUMIN 1.4 g/dL (3.4-4.8); ANION GAP 5 (5-15); ASPARTATE AMINOTRANSFERASE 35 U/L (10-37); CALCIUM 7.6 mg/dL (8.4-11.0); CHLORIDE 103 mmol/L (98-107); CREATININE 1.05 mg/dL (0.55-1.30); GLUCOSE 363 mg/dL (70-99); PHOSPHORUS 1.9 mg/dL (2.7-4.5); SODIUM SERUM 134 mmol/L (136-145); TOTAL BILIRUBIN 0.4 mg/dL (0.0-1.0); UREA NITROGEN, BLOOD 14 mg/dL (8-21)
[2020-04-03 08:02] VITALS: BP_SYST 157
[2020-04-03 08:18] LABS: C-REACTIVE PROTEIN QUANT 16.8 mg/dL (0-0.5)
[2020-04-03] MEDS: DIVALPROEX SODIUM 250 MG TAB.SR.24H (DEPAKOTE ER) PO SCH (09:00)
[2020-04-03] MEDS: ASCORBIC ACID 500 MG TABLET PO SCH (09:00)
[2020-04-03] MEDS: TIMOLOL MALEATE 0.25% OPHTHALMIC DROPS 5 ML EACH EYE SCH (09:00)
[2020-04-03] MEDS: CHOLECALCIFEROL (VITAMIN D3) 2,000 UNIT TABLET PO SCH (09:00)
[2020-04-03] MEDS: MULTIVITAMINS TAB 1 TABLET PO SCH (09:00)
[2020-04-03] MEDS: LOSARTAN POTASSIUM 50 MG TABLET (COZAAR) PO SCH (09:58)
[2020-04-03] MEDS: MEGESTROL ACETATE 400 MG/10 ML UDC PO SCH ×2 (09:59→20:00)
[2020-04-03] MEDS: QUEtiapine FUMARATE 25 MG TABLET PO SCH ×2 (09:59→20:00)
[2020-04-03 12:00] VITALS: BP_SYST 156
[2020-04-03 17:26] VITALS: BP_SYST 159
[2020-04-03 20:00] VITALS: BP_SYST 143
[2020-04-03] MEDS: MIRTAZAPINE 15 MG TABLET PO SCH (20:00)
[2020-04-03] MEDS ORDERED: SODIUM ACETATE IV SCH ×11 (21:00)
[2020-04-03] MEDS ORDERED: POTASSIUM ACETATE IV SCH ×11 (21:00)
[2020-04-03] MEDS ORDERED: TPN PERIPHERAL IV SCH ×11 (21:00)
[2020-04-03] MEDS ORDERED: [UNRECOGNIZED DRUG - OTHER] IV SCH ×11 (21:00)
[2020-04-03] MEDS: 0.45% NACL 1,000 ML IV SCH (21:12)
[2020-04-04] VITALS: BP_SYST 157
[2020-04-04] MEDS: traMADol HCL HCL 50 MG TABLET (ULTRAM) PO SCH ×4 (01:00→19:16)
[2020-04-04] MEDS: LORazepam 2 MG/ML VIAL IVP PRN (01:26)
[2020-04-04 04:00] VITALS: BP_SYST 160
[2020-04-04] MEDS: HEPARIN 25,000 UNITS in 250 ML PREMIX IV PRN ×2 (06:00→12:52)
[2020-04-04] MEDS: PIPERACILLIN/TAZO 4.5GM/DEX-IS 100 ML IV SCH ×3 (06:29→23:27)
[2020-04-04] MEDS: INSULIN REGULAR, HUMAN 100 UNITS/ML, 10 ML VIAL (humuLIN R) SUBCUT PRN ×3 (06:30→17:53)
[2020-04-04 07:00] LABS: ALANINE AMINOTRANSFERASE 50 U/L (12-78); ALBUMIN 1.2 g/dL (3.4-4.8); ANION GAP 4 (5-15); ASPARTATE AMINOTRANSFERASE 29 U/L (10-37); CALCIUM 7.2 mg/dL (8.4-11.0); CHLORIDE 99 mmol/L (98-107); CREATININE 0.95 mg/dL (0.55-1.30); GLUCOSE 237 mg/dL (70-99); POTASSIUM 4.2 mmol/L (3.5-5.1); SODIUM SERUM 130 mmol/L (136-145); TOTAL BILIRUBIN 0.3 mg/dL (0.0-1.0); UREA NITROGEN, BLOOD 19 mg/dL (8-21)
[2020-04-04 08:00] VITALS: BP_SYST 135
[2020-04-04] MEDS: TIMOLOL MALEATE 0.25% OPHTHALMIC DROPS 5 ML EACH EYE SCH (10:09)
[2020-04-04] MEDS: QUEtiapine FUMARATE 25 MG TABLET PO SCH ×2 (10:10→21:58)
[2020-04-04] MEDS: MULTIVITAMINS TAB 1 TABLET PO SCH (10:10)
[2020-04-04] MEDS: MEGESTROL ACETATE 400 MG/10 ML UDC PO SCH ×2 (10:10→21:57)
[2020-04-04] MEDS: LOSARTAN POTASSIUM 50 MG TABLET (COZAAR) PO SCH (10:10)
[2020-04-04] MEDS: DIVALPROEX SODIUM 250 MG TAB.SR.24H (DEPAKOTE ER) PO SCH (10:10)
[2020-04-04] MEDS: CHOLECALCIFEROL (VITAMIN D3) 2,000 UNIT TABLET PO SCH (10:11)
[2020-04-04] MEDS: ASCORBIC ACID 500 MG TABLET PO SCH (10:11)
[2020-04-04 12:00] VITALS: BP_SYST 142
[2020-04-04] MEDS: HEPARIN SODIUM,PORCINE 3000 UNITS/0.6 ML BOLUS IVP PRN (12:51)
[2020-04-04 16:00] VITALS: BP_SYST 145
[2020-04-04 20:00] VITALS: BP_SYST 139
[2020-04-04] MEDS ORDERED: SODIUM ACETATE IV SCH ×12 (21:00)
[2020-04-04] MEDS ORDERED: TPN PERIPHERAL IV SCH ×12 (21:00)
[2020-04-04] MEDS ORDERED: SODIUM CHLORIDE IV SCH ×12 (21:00)
[2020-04-04] MEDS ORDERED: [UNRECOGNIZED DRUG - OTHER] IV SCH ×12 (21:00)
[2020-04-04] MEDS: 0.45% NACL 1,000 ML IV SCH (21:57)
[2020-04-04] MEDS: MIRTAZAPINE 15 MG TABLET PO SCH (21:58)
[2020-04-05] VITALS: BP_SYST 146
[2020-04-05] MEDS: traMADol HCL HCL 50 MG TABLET (ULTRAM) PO SCH ×4 (01:27→19:00)
[2020-04-05] MEDS: PIPERACILLIN/TAZO 4.5GM/DEX-IS 100 ML IV SCH ×3 (06:42→21:43)
[2020-04-05] MEDS: HEPARIN 25,000 UNITS in 250 ML PREMIX IV PRN ×2 (07:03→10:48)
[2020-04-05] MEDS: INSULIN REGULAR, HUMAN 100 UNITS/ML, 10 ML VIAL (humuLIN R) SUBCUT PRN ×3 (07:03→21:45)
[2020-04-05 07:15] LABS: ALANINE AMINOTRANSFERASE 37 U/L (12-78); ALBUMIN 1.3 g/dL (3.4-4.8); ANION GAP 5 (5-15); ASPARTATE AMINOTRANSFERASE 26 U/L (10-37); CALCIUM 7.6 mg/dL (8.4-11.0); CHLORIDE 102 mmol/L (98-107); CREATININE 0.97 mg/dL (0.55-1.30); GLUCOSE 315 mg/dL (70-99); PHOSPHORUS 3.1 mg/dL (2.7-4.5); SODIUM SERUM 134 mmol/L (136-145); TOTAL BILIRUBIN 0.3 mg/dL (0.0-1.0); UREA NITROGEN, BLOOD 21 mg/dL (8-21)
[2020-04-05] MEDS: QUEtiapine FUMARATE 25 MG TABLET PO SCH ×2 (09:29→21:35)
[2020-04-05] MEDS: ASCORBIC ACID 500 MG TABLET PO SCH (09:29)
[2020-04-05] MEDS: MULTIVITAMINS TAB 1 TABLET PO SCH (09:29)
[2020-04-05] MEDS: MEGESTROL ACETATE 400 MG/10 ML UDC PO SCH ×2 (09:30→21:35)
[2020-04-05] MEDS: DIVALPROEX SODIUM 250 MG TAB.SR.24H (DEPAKOTE ER) PO SCH (09:30)
[2020-04-05] MEDS: CHOLECALCIFEROL (VITAMIN D3) 2,000 UNIT TABLET PO SCH (09:30)
[2020-04-05 09:40] VITALS: BP_SYST 148
[2020-04-05] MEDS: LOSARTAN POTASSIUM 50 MG TABLET (COZAAR) PO SCH (09:45)
[2020-04-05] MEDS: TIMOLOL MALEATE 0.25% OPHTHALMIC DROPS 5 ML EACH EYE SCH (11:36)
[2020-04-05 11:37] VITALS: BP_SYST 124
[2020-04-05 16:25] VITALS: BP_SYST 127
[2020-04-05 20:05] VITALS: BP_SYST 111
[2020-04-05] MEDS ORDERED: SODIUM CHLORIDE IV SCH ×12 (21:00)
[2020-04-05] MEDS ORDERED: TPN PERIPHERAL IV SCH ×12 (21:00)
[2020-04-05] MEDS ORDERED: [UNRECOGNIZED DRUG - OTHER] IV SCH ×12 (21:00)
[2020-04-05] MEDS ORDERED: SODIUM ACETATE IV SCH ×12 (21:00)
[2020-04-05] MEDS: 0.45% NACL 1,000 ML IV SCH (21:30)
[2020-04-05] MEDS: MIRTAZAPINE 15 MG TABLET PO SCH (21:35)
[2020-04-06] VITALS (7 sets, daily range): BP systolic 132–157
[2020-04-06] MEDS: traMADol HCL HCL 50 MG TABLET (ULTRAM) PO SCH ×2 (01:00→06:59)
[2020-04-06] MEDS: HEPARIN 25,000 UNITS in 250 ML PREMIX IV PRN ×3 (01:21→17:32)
[2020-04-06] MEDS: LORazepam 2 MG/ML VIAL IVP PRN ×2 (01:45→21:20)
[2020-04-06] MEDS: PIPERACILLIN/TAZO 4.5GM/DEX-IS 100 ML IV SCH ×3 (05:55→22:00)
[2020-04-06] MEDS: INSULIN REGULAR, HUMAN 100 UNITS/ML, 10 ML VIAL (humuLIN R) SUBCUT PRN ×3 (06:05→17:32)
[2020-04-06] MEDS: TIMOLOL MALEATE 0.25% OPHTHALMIC DROPS 5 ML EACH EYE SCH (08:14)
[2020-04-06] MEDS: LOSARTAN POTASSIUM 50 MG TABLET (COZAAR) PO SCH (08:14)
[2020-04-06] MEDS: MULTIVITAMINS TAB 1 TABLET PO SCH (08:14)
[2020-04-06] MEDS: QUEtiapine FUMARATE 25 MG TABLET PO SCH ×2 (08:14→21:00)
[2020-04-06] MEDS: CHOLECALCIFEROL (VITAMIN D3) 2,000 UNIT TABLET PO SCH (08:14)
[2020-04-06] MEDS: MEGESTROL ACETATE 400 MG/10 ML UDC PO SCH ×2 (08:14→21:00)
[2020-04-06] MEDS: ASCORBIC ACID 500 MG TABLET PO SCH (08:14)
[2020-04-06] MEDS: DIVALPROEX SODIUM 250 MG TAB.SR.24H (DEPAKOTE ER) PO SCH ×2 (08:14→21:00)
[2020-04-06 08:33] LABS: ALANINE AMINOTRANSFERASE 34 U/L (12-78); ALBUMIN 1.1 g/dL (3.4-4.8); ANION GAP 7 (5-15); ASPARTATE AMINOTRANSFERASE 27 U/L (10-37); CALCIUM 7.3 mg/dL (8.4-11.0); CHLORIDE 100 mmol/L (98-107); CREATININE 1.12 mg/dL (0.55-1.30); GLUCOSE 293 mg/dL (70-99); PHOSPHORUS 3.1 mg/dL (2.7-4.5); POTASSIUM 4.2 mmol/L (3.5-5.1); SODIUM SERUM 132 mmol/L (136-145); TOTAL BILIRUBIN 0.3 mg/dL (0.0-1.0); UREA NITROGEN, BLOOD 23 mg/dL (8-21)
[2020-04-06] MEDS ORDERED: [UNRECOGNIZED DRUG - OTHER] IV SCH ×12 (21:00)
[2020-04-06] MEDS: MIRTAZAPINE 15 MG TABLET PO SCH (21:00)
[2020-04-06] MEDS ORDERED: SODIUM ACETATE IV SCH ×12 (21:00)
[2020-04-06] MEDS ORDERED: SODIUM CHLORIDE IV SCH ×12 (21:00)
[2020-04-06] MEDS ORDERED: TPN PERIPHERAL IV SCH ×12 (21:00)
[2020-04-06] MEDS: ACETAMINOPHEN 500 MG TABLET PO PRN (21:10)
[2020-04-06] MEDS: 0.45% NACL 1,000 ML IV SCH (21:39)
[2020-04-07] VITALS: BP_SYST 125
[2020-04-07] MEDS: INSULIN REGULAR, HUMAN 100 UNITS/ML, 10 ML VIAL (humuLIN R) SUBCUT PRN ×5 (00:22→22:12)
[2020-04-07] MEDS: PIPERACILLIN/TAZO 4.5GM/DEX-IS 100 ML IV SCH (05:31)
[2020-04-07 07:30] LABS: ALANINE AMINOTRANSFERASE 40 U/L (12-78); ANION GAP 9 (5-15); ASPARTATE AMINOTRANSFERASE 34 U/L (10-37); CALCIUM 7.3 mg/dL (8.4-11.0); CHLORIDE 99 mmol/L (98-107); GLUCOSE 371 mg/dL (70-99); PHOSPHORUS 3.4 mg/dL (2.7-4.5); POTASSIUM 4.1 mmol/L (3.5-5.1); SODIUM SERUM 131 mmol/L (136-145); TOTAL BILIRUBIN 0.2 mg/dL (0.0-1.0); UREA NITROGEN, BLOOD 28 mg/dL (8-21)
[2020-04-07 08:30] VITALS: BP_SYST 140
[2020-04-07] MEDS: LOSARTAN POTASSIUM 50 MG TABLET (COZAAR) PO SCH (09:00)
[2020-04-07] MEDS: ASCORBIC ACID 500 MG TABLET PO SCH (09:45)
[2020-04-07] MEDS: MEGESTROL ACETATE 400 MG/10 ML UDC PO SCH ×2 (09:45→21:54)
[2020-04-07] MEDS: DIVALPROEX SODIUM 250 MG TAB.SR.24H (DEPAKOTE ER) PO SCH ×2 (09:45→21:56)
[2020-04-07] MEDS: MULTIVITAMINS TAB 1 TABLET PO SCH (09:45)
[2020-04-07] MEDS: QUEtiapine FUMARATE 25 MG TABLET PO SCH ×2 (09:45→21:56)
[2020-04-07] MEDS: CHOLECALCIFEROL (VITAMIN D3) 2,000 UNIT TABLET PO SCH (09:45)
[2020-04-07] MEDS: TIMOLOL MALEATE 0.25% OPHTHALMIC DROPS 5 ML EACH EYE SCH (09:50)
[2020-04-07] MEDS: HEPARIN 25,000 UNITS in 250 ML PREMIX IV PRN (09:59)
[2020-04-07 12:13] VITALS: BP_SYST 123
[2020-04-07] MEDS: LEVOFLOXACIN 250 MG/D5W 50 ML IV SCH (12:16)
[2020-04-07 16:38] VITALS: BP_SYST 129
[2020-04-07 20:00] VITALS: BP_SYST 131
[2020-04-07] MEDS ORDERED: [UNRECOGNIZED DRUG - OTHER] IV SCH ×12 (21:00)
[2020-04-07] MEDS ORDERED: TPN PERIPHERAL IV SCH ×12 (21:00)
[2020-04-07] MEDS ORDERED: SODIUM CHLORIDE IV SCH ×12 (21:00)
[2020-04-07] MEDS ORDERED: SODIUM ACETATE IV SCH ×12 (21:00)
[2020-04-07] MEDS: MIRTAZAPINE 15 MG TABLET PO SCH (21:56)
[2020-04-07] MEDS: 0.45% NACL 1,000 ML IV SCH (22:37)
[2020-04-08] VITALS: BP_SYST 118
[2020-04-08] MEDS: HEPARIN 25,000 UNITS in 250 ML PREMIX IV PRN ×3 (05:20→16:50)
[2020-04-08] MEDS: INSULIN REGULAR, HUMAN 100 UNITS/ML, 10 ML VIAL (humuLIN R) SUBCUT PRN ×4 (06:29→22:05)
[2020-04-08 07:57] LABS: ALANINE AMINOTRANSFERASE 58 U/L (12-78); ALBUMIN 0.9 g/dL (3.4-4.8); ANION GAP 6 (5-15); CALCIUM 7.5 mg/dL (8.4-11.0); CHLORIDE 99 mmol/L (98-107); CREATININE 1.37 mg/dL (0.55-1.30); GLUCOSE 325 mg/dL (70-99); PHOSPHORUS 2.9 mg/dL (2.7-4.5); POTASSIUM 3.6 mmol/L (3.5-5.1); SODIUM SERUM 129 mmol/L (136-145); TOTAL BILIRUBIN 0.2 mg/dL (0.0-1.0); UREA NITROGEN, BLOOD 29 mg/dL (8-21)
[2020-04-08] MEDS: CHOLECALCIFEROL (VITAMIN D3) 2,000 UNIT TABLET PO SCH (08:16)
[2020-04-08] MEDS: LOSARTAN POTASSIUM 50 MG TABLET (COZAAR) PO SCH (08:16)
[2020-04-08] MEDS: MEGESTROL ACETATE 400 MG/10 ML UDC PO SCH ×2 (08:16→21:50)
[2020-04-08] MEDS: ASCORBIC ACID 500 MG TABLET PO SCH (08:17)
[2020-04-08] MEDS: MULTIVITAMINS TAB 1 TABLET PO SCH (08:17)
[2020-04-08] MEDS: QUEtiapine FUMARATE 25 MG TABLET PO SCH ×2 (08:17→21:51)
[2020-04-08] MEDS: TIMOLOL MALEATE 0.25% OPHTHALMIC DROPS 5 ML EACH EYE SCH (08:18)
[2020-04-08] MEDS: DIVALPROEX SODIUM 250 MG TAB.SR.24H (DEPAKOTE ER) PO SCH ×2 (08:23→21:50)
[2020-04-08 08:30] VITALS: BP_SYST 121
[2020-04-08 08:50] LABS: ASPARTATE AMINOTRANSFERASE 52 U/L (10-37)
[2020-04-08] MEDS: LEVOFLOXACIN 250 MG/D5W 50 ML IV SCH (11:12)
[2020-04-08 11:55] VITALS: BP_SYST 108
[2020-04-08 16:44] VITALS: BP_SYST 114
[2020-04-08 20:00] VITALS: BP_SYST 133
[2020-04-08] MEDS ORDERED: TPN PERIPHERAL IV SCH ×12 (21:00)
[2020-04-08] MEDS ORDERED: SODIUM CHLORIDE IV SCH ×12 (21:00)
[2020-04-08] MEDS ORDERED: SODIUM ACETATE IV SCH ×12 (21:00)
[2020-04-08] MEDS ORDERED: [UNRECOGNIZED DRUG - OTHER] IV SCH ×12 (21:00)
[2020-04-08] MEDS: MIRTAZAPINE 15 MG TABLET PO SCH (21:50)
[2020-04-08] MEDS: 0.45% NACL 1,000 ML IV SCH (22:02)
[2020-04-09 00:03] VITALS: BP_SYST 133
[2020-04-09] MEDS: HEPARIN 25,000 UNITS in 250 ML PREMIX IV PRN (03:50)
[2020-04-09] MEDS: INSULIN REGULAR, HUMAN 100 UNITS/ML, 10 ML VIAL (humuLIN R) SUBCUT PRN ×4 (06:28→20:38)
[2020-04-09 07:50] LABS: ALANINE AMINOTRANSFERASE 111 U/L (12-78); ANION GAP 9 (5-15); CALCIUM 7.3 mg/dL (8.4-11.0); CHLORIDE 101 mmol/L (98-107); CREATININE 1.43 mg/dL (0.55-1.30); GLUCOSE 285 mg/dL (70-99); POTASSIUM 3.8 mmol/L (3.5-5.1); SODIUM SERUM 133 mmol/L (136-145); TOTAL BILIRUBIN 0.2 mg/dL (0.0-1.0); UREA NITROGEN, BLOOD 36 mg/dL (8-21)
[2020-04-09 08:00] VITALS: BP_SYST 154
[2020-04-09 09:32] LABS: ASPARTATE AMINOTRANSFERASE 105 U/L (10-37)
[2020-04-09] MEDS: QUEtiapine FUMARATE 25 MG TABLET PO SCH ×2 (09:41→20:31)
[2020-04-09] MEDS: MEGESTROL ACETATE 400 MG/10 ML UDC PO SCH ×2 (09:41→20:36)
[2020-04-09] MEDS: CHOLECALCIFEROL (VITAMIN D3) 2,000 UNIT TABLET PO SCH (09:41)
[2020-04-09] MEDS: MULTIVITAMINS TAB 1 TABLET PO SCH (09:42)
[2020-04-09] MEDS: ASCORBIC ACID 500 MG TABLET PO SCH (09:42)
[2020-04-09] MEDS: DIVALPROEX SODIUM 250 MG TAB.SR.24H (DEPAKOTE ER) PO SCH ×2 (09:46→20:36)
[2020-04-09] MEDS: LOSARTAN POTASSIUM 50 MG TABLET (COZAAR) PO SCH (09:46)
[2020-04-09] MEDS: TIMOLOL MALEATE 0.25% OPHTHALMIC DROPS 5 ML EACH EYE SCH (09:47)
[2020-04-09 11:29] VITALS: BP_SYST 113
[2020-04-09] MEDS: LEVOFLOXACIN 250 MG/D5W 50 ML IV SCH (11:54)
[2020-04-09 15:31] VITALS: BP_SYST 131
[2020-04-09 20:00] VITALS: BP_SYST 153
[2020-04-09] MEDS: MIRTAZAPINE 15 MG TABLET PO SCH (20:30)
[2020-04-09] MEDS: ACETAMINOPHEN 500 MG TABLET PO PRN (20:30)
[2020-04-09] MEDS: NYSTATIN 15 GM TOPICAL POWDER TP SCH (20:42)
[2020-04-09] MEDS ORDERED: TPN PERIPHERAL IV SCH ×12 (21:00)
[2020-04-09] MEDS ORDERED: SODIUM ACETATE IV SCH ×12 (21:00)
[2020-04-09] MEDS ORDERED: [UNRECOGNIZED DRUG - OTHER] IV SCH ×12 (21:00)
[2020-04-09] MEDS ORDERED: SODIUM CHLORIDE IV SCH ×12 (21:00)
[2020-04-09] MEDS: 0.45% NACL 1,000 ML IV SCH (21:11)
[2020-04-10 00:12] VITALS: BP_SYST 105
[2020-04-10] MEDS: HEPARIN 25,000 UNITS in 250 ML PREMIX IV PRN (02:19)
[2020-04-10] MEDS: INSULIN REGULAR, HUMAN 100 UNITS/ML, 10 ML VIAL (humuLIN R) SUBCUT PRN ×3 (06:31→17:08)
[2020-04-10 07:42] LABS: ALANINE AMINOTRANSFERASE 121 U/L (12-78); ALBUMIN 0.9 g/dL (3.4-4.8); ANION GAP 11 (5-15); ASPARTATE AMINOTRANSFERASE 79 U/L (10-37); CALCIUM 7.2 mg/dL (8.4-11.0); CHLORIDE 100 mmol/L (98-107); CREATININE 1.48 mg/dL (0.55-1.30); GLUCOSE 345 mg/dL (70-99); PHOSPHORUS 3.3 mg/dL (2.7-4.5); POTASSIUM 3.7 mmol/L (3.5-5.1); SODIUM SERUM 134 mmol/L (136-145); TOTAL BILIRUBIN 0.1 mg/dL (0.0-1.0); UREA NITROGEN, BLOOD 44 mg/dL (8-21)
[2020-04-10 08:00] VITALS: BP_SYST 120
[2020-04-10] MEDS: LOSARTAN POTASSIUM 50 MG TABLET (COZAAR) PO SCH (09:00)
[2020-04-10] MEDS: ASCORBIC ACID 500 MG TABLET PO SCH (09:00)
[2020-04-10] MEDS: MEGESTROL ACETATE 400 MG/10 ML UDC PO SCH (09:00)
[2020-04-10] MEDS ORDERED: QUEtiapine FUMARATE 25 MG TABLET PO SCH (09:00)
[2020-04-10] MEDS: DIVALPROEX SODIUM 250 MG TAB.SR.24H (DEPAKOTE ER) PO SCH (09:00)
[2020-04-10] MEDS: CHOLECALCIFEROL (VITAMIN D3) 2,000 UNIT TABLET PO SCH (09:00)
[2020-04-10] MEDS: MULTIVITAMINS TAB 1 TABLET PO SCH (09:00)
[2020-04-10] MEDS ORDERED: NYSTATIN 15 GM TOPICAL POWDER TP SCH (09:45)
[2020-04-10] MEDS: TIMOLOL MALEATE 0.25% OPHTHALMIC DROPS 5 ML EACH EYE SCH (09:57)
[2020-04-10] MEDS: NYSTATIN 15 GM TOPICAL POWDER TP SCH (10:01)
[2020-04-10] MEDS: LEVOFLOXACIN 250 MG/D5W 50 ML IV SCH (12:00)
[2020-04-10 12:13] VITALS: BP_SYST 125
[2020-04-10] MEDS ORDERED: PIPERACILLIN/TAZO 2.25G/DEX-IS 50 ML IV SCH (15:30)
[2020-04-10] MEDS ORDERED: ACETAMINOPHEN 650 MG SUPP.RECT RC PRN (15:45)
[2020-04-10 16:09] VITALS: BP_SYST 109
[2020-04-10] MEDS ORDERED: TPN PERIPHERAL IV SCH ×12 (21:00)
[2020-04-10] MEDS ORDERED: SODIUM CHLORIDE IV SCH ×12 (21:00)
[2020-04-10] MEDS ORDERED: [UNRECOGNIZED DRUG - OTHER] IV SCH ×12 (21:00)
[2020-04-10] MEDS ORDERED: SODIUM ACETATE IV SCH ×12 (21:00)
== END 2020-04-10 20:07 | disposition expired | DRG 299 ==
LOC: SED 17:33 → STU 03-20 01:20 → SMU 03-22 15:54 → STU 03-30 23:44
PROVIDERS: ADMIT Family Medicine; ATTEND Family Medicine
PROC: 02HV33Z Insertion of Infusion Device into Superior Vena Cava, Percutaneous Approach (ICD-10-PCS; principal; 2020-04-02)
PROC: B548ZZA Ultrasonography of Superior Vena Cava, Guidance (ICD-10-PCS; 2020-04-02)
DX: E11.51 Type 2 diabetes mellitus with diabetic peripheral angiopathy without gangrene (principal); U07.1 COVID-19; E43 Unspecified severe protein-calorie malnutrition; L03.115 Cellulitis of right lower limb; F03.90 Unspecified dementia, unspecified severity, without behavioral disturbance, psychotic disturbance, mood disturbance, and anxiety; F32.9 Major depressive disorder, single episode, unspecified; F99 Mental disorder, not otherwise specified; I46.9 Cardiac arrest, cause unspecified; I70.201 Unspecified atherosclerosis of native arteries of extremities, right leg; J44.9 Chronic obstructive pulmonary disease, unspecified; F41.9 Anxiety disorder, unspecified; I10 Essential (primary) hypertension; Z88.1 Allergy status to other antibiotic agents; Z87.891 Personal history of nicotine dependence; Z68.21 Body mass index [BMI] 21.0-21.9, adult
CPT/HCPCS: 36415; 71045; 73706; 80048; 80053; 80164-TC; 82728; 82962; 83735-TC; 84100-TC; 84478-TC; 85025; 85379; 85610-TC; 85651-TC; 85730-TC; 86140; 87040-TC; 87081; 99285; C1751; G0378; J0610; J1644; J1815; J1956; J2060; J2543; J3370; J3475; J3480; J3490; J7030; J7040; J7050; J7060; J7131; Q9967; U0003-CS